=== PATIENT | female | born 1960 | race Caucasian/White ===

== ENCOUNTER → 2020-01-27 10:02 | Outpatient (CLI) | payer BC, SELFPAY ==
--- NOTE | ~2020-01-27 | MM_ITS ---
EXAMINATION: MM screening [facility] BI w [facility]mila HISTORY: Screening TECHNIQUE: Craniocaudal and mediolateral oblique 3-D tomosynthesis images were obtained and synthetic 2-D images were generated. CAD analysis was submitted and interpreted. COMPARISON: Comparison to multiple prior studies sequentially, with oldest reviewed study dated 05/09. BREAST PARENCHYMAL COMPOSITION: There are scattered areas of fibroglandular density. FINDINGS: There is no evidence of suspicious mass, calcification, or architectural distortion to sugg est malignancy in either breast. There has been no suspicious interval change. IMPRESSION: 1. No mammographic evidence of malignancy. 2. Recommend routine screening mammography in one year. BI-RADS Category 1: Negative Reviewed, dictated and finalized at location A.
== END ==
PROVIDERS: PCP Family Medicine Sports Medicine; Visit Provider Nurse Practitioner
DX: Z12.31 Encounter for screening mammogram for malignant neoplasm of breast (principal)
CPT/HCPCS: 77063; 77067

== ENCOUNTER → 2021-02-02 10:41 | Outpatient (CLI) | payer OTHER, SELFPAY ==
--- NOTE | ~2021-02-02 | MM_ITS ---
EXAMINATION: MM screening [facility] BI w urmila HISTORY: Screening mammogram TECHNIQUE: Craniocaudal and mediolateral oblique 3-D tomosynthesis images were obtained and synthetic 2-D images were generated. CAD analysis was submitted and interpreted. COMPARISON: 01/27/2020, 01/22/2019, 01/16/2018 bilateral digital screening mammogram examinations BREAST PARENCHYMAL COMPOSITION: The breasts are heterogeneously dense, which may obscure small masses . FINDINGS: There is no evidence of suspicious mass, calcification, or architectural distortion to sugg est malignancy in either breast. There has been no suspicious interval change. IMPRESSION: 1. No mammographic evidence of malignancy. 2. Recommend routine screening mammography in one year. BI-RADS Category 1: Negative Reviewed, dictated and finalized at location A.
== END ==
PROVIDERS: Visit Provider Nurse Practitioner
DX: Z12.31 Encounter for screening mammogram for malignant neoplasm of breast (principal)
CPT/HCPCS: 77063; 77067

== ENCOUNTER → 2022-02-08 09:54 | Outpatient (CLI) | payer OTHER, SELFPAY ==
--- NOTE | ~2022-02-08 | MM_ITS ---
EXAMINATION: MM screening [facility] BI w urmila HISTORY: Screening mammogram TECHNIQUE: Craniocaudal and mediolateral oblique 3-D tomosynthesis images were obtained and synthetic 2-D images were generated. CAD analysis was submitted and interpreted. COMPARISON: 02/02/2021, 01/27/2020, 02/03/2019, 01/16/2018 BREAST PARENCHYMAL COMPOSITION: The breasts are heterogeneously dense, which may obscure small masses . FINDINGS: No suspicious mass, calcification, or architectural distortion are identified in either sandrine ast to suggest malignancy. There has been no suspicious interval change. IMPRESSION: 1. No mammographic evidence of malignancy. 2. Recommend routine screening mammography in one year. BI-RADS Category 1: Negative Reviewed, dictated and finalized at location A.
== END ==
PROVIDERS: PCP Family Medicine Sports Medicine; Visit Provider Nurse Practitioner
DX: Z12.31 Encounter for screening mammogram for malignant neoplasm of breast (principal)
CPT/HCPCS: 77063; 77067

== ENCOUNTER → 2023-02-14 10:15 | Outpatient (CLI) | payer OTHER, SELFPAY ==
--- NOTE | ~2023-02-14 | MM_ITS ---
EXAMINATION: MM screening [facility] BI w urmila HISTORY: Screening mammogram TECHNIQUE: Craniocaudal and mediolateral oblique 3-D tomosynthesis images were obtained and synthetic 2-D images were generated. CAD analysis was submitted and interpreted. COMPARISON: 02/08/2022, 02/02/2021, 01/27/2020 BREAST PARENCHYMAL COMPOSITION: The breasts are heterogeneously dense, which may obscure small masses . FINDINGS: No suspicious mass, calcification, or architectural distortion are identified in either sandrine ast to suggest malignancy. There has been no suspicious interval change. IMPRESSION: 1. No mammographic evidence of malignancy. 2. Recommend routine screening mammography in one year. BI-RADS Category 1: Negative Reviewed, dictated and finalized at location A.
--- NOTE | ~2023-02-14 | DEXA_ITS ---
Bone Density Report Name: CRICKET HART Age: 62 Sex: Female Ethnicity: White Date of : 1960 Indication: postmenopausal; screening for osteoporosis; prior fracture; rheumatoid arthritis; Referring Provider: GEORGES, SANTA Study: Bone densitometry was performed. Exam Date: February 14, 2023 Accession number: [id number] Bone Density: Region BMD T-score Z-score Classification AP Spine (L1-L4) 0.813 -2.1 -0.7 Osteopenia Femoral Neck (Left) 0.719 -1.2 0.1 Osteopenia Total Hip (Left) 0.845 -0.8 0.2 Normal Femoral Neck (Right) 0.686 -1.5 -0.2 Osteopenia Total Hip (Right) 0.745 -1.6 -0.7 Osteopenia Total Hip Mean 0.795 -1.2 -0.3 Osteopenia World Health Organization criteria for BMD impression classify patients as: Normal (T-score at or above -1.0), Osteopenia (T-score between -1.0 and -2.5), or Osteoporosis (T-score at or below -2.5). 10-year Fracture Risk(1): Major Osteoporotic Fracture 16% Hip Fracture 1.4% Reported Risk Factors: [place] (), Neck BMD=0.686, BMI=36.3, previous fracture, rheumatoid arthritis (1) FRAX(R) Version 3.08. Fracture probability calculated for an untreated patient. Fracture probability may be lower if the patient has received treatment. Clinical Information Provided by Patient: Has had a low trauma fracture Has rheumatoid arthritis Has used the following medications: Vitamin D, Calcium, MTV Patient maximum height was 64.5 Menopause Age: 52 No regular weight bearing exercise Does not regularly consume dairy products Drinks caffeinated beverages Onset of menses at age 14 Number of children 0 Impression: The patient has low bone mass, based on the Total Spine T-score. The patient has an estimated ten-year risk of hip fracture of 1.4% and an estimated ten-year risk of major fracture of 16%, based on the WHO FRAX algorithm. The patient has risk factors, including: previous fracture. Discussion: BONE DENSITY IS LOW AT ONE OR MORE SKELETAL SITES. This patient's lowest T-score is low at one or more skeletal sites. It meets the World Health Organization's (WHO) criteria for ?low bone mass? (T-score between -1.0 and -2.5). The patient's 10-year risk of fracture as calculated by FRAX is less than the threshold where pharmacological therapy is recommended by the National Osteoporosis Foundation (NOF). However, all treatment decisions require clinical judgment and consideration of individual patient factors, including patient preferences, comorbidities, previous drug use, risk factors not captured in the FRAX model (e.g., frailty, falls, vitamin D deficiency, increased bone turnover, interval significant decline in bone density) and possible under or overestimation of fracture risk by FRAX. The patient should follow a healthful lifestyle (good nutrition with adeq
== END ==
PROVIDERS: Visit Provider Nurse Practitioner
DX: Z12.31 Encounter for screening mammogram for malignant neoplasm of breast (principal); Z78.0 Asymptomatic menopausal state; M85.89 Other specified disorders of bone density and structure, multiple sites
CPT/HCPCS: 77063; 77067; 77080

== ENCOUNTER 2024-02-27 10:03 | Outpatient (CLI) | payer BC, SELFPAY ==
--- NOTE | ~2024-02-27 | MM_ITS ---
EXAMINATION: MM screening [facility] BI w urmila HISTORY: Screening mammogram TECHNIQUE: Craniocaudal and mediolateral oblique 3-D tomosynthesis images were obtained and synthetic 2-D images were generated. CAD analysis was submitted and interpreted. COMPARISON: 02/14/2023, 02/08/2022, 02/02/2021, 01/27/2020 BREAST PARENCHYMAL COMPOSITION:Not Dense. There are scattered areas of fibroglandular density. FINDINGS: No suspicious mass, calcification, or architectural distortion are identified in either sandrine ast to suggest malignancy. There has been no suspicious interval change. IMPRESSION: No mammographic evidence of malignancy. Recommend routine screening mammography in one year. BI-RADS Category 1: Negative Reviewed, dictated and finalized at location . S RESEARCH ANALYST
== END 2024-02-27 10:04 | disposition home or self-care (01) ==
LOC: MICIMG 10:04
PROVIDERS: PCP Family Medicine Sports Medicine; Visit Provider Nurse Practitioner
DX: Z12.31 Encounter for screening mammogram for malignant neoplasm of breast (principal)
CPT/HCPCS: 77063; 77067

== ENCOUNTER 2024-09-19 11:19 | Outpatient (CLI) | payer BC, SELFPAY ==
--- NOTE | ~2024-09-19 | US_ITS ---
Pelvic ultrasound. Clinical History: Postmenopausal bleeding Technique: Realtime transabdominal and transvaginal scanning of the pelvis was performed. Color flow Doppler and Doppler spectral analysis were performed. Findings: The uterus is anteverted. The endometrial stripe has a thickness of approximately 3 mm. Po ssible posterior wall fibroid measuring 1.8 cm in diameter . Neither ovary seen. No other adnexal mass seen. There is no evidence of free fluid in the cul de sac. Impression: No definite abnormal endometrial thickening. Possible small uterine fibroid, as above. Reviewed, dictated and finalized at location . Impression: No definite abnormal endometrial thickening. Possible small uterine fibroid, as above.
== END 2024-09-19 11:20 | disposition home or self-care (01) ==
LOC: MICIMG 11:20
PROVIDERS: PCP Family Medicine Sports Medicine; Visit Provider Nurse Practitioner
DX: R93.89 Abnormal findings on diagnostic imaging of other specified body structures (principal)
CPT/HCPCS: 76830; 76856

== ENCOUNTER 2025-02-18 01:09 | Day surgery (SDC) | payer BC, SELFPAY ==
[2025-02-11 12:57] VITALS: BMI 33.0
--- OUTSIDE RECORDS SUMMARY | 2025-02-18 01:12 | XMS_ITS | Encounter Summary ---
Author Organization [facility] Address [address] [place] [id number] Care Team Providers Care Sewing Pattern Layout Technician Name Role Phone Shanae Echols DO Primary Care Provider [phone] Encounter Details Date Type Department Care Team (Late st Contact Info) Description 06/13/2013 Abstract [facility] Conversion Md, Generic Conversion, Social History Tobacco Use Types Packs/Day Years Used Date Smoking Tobacco: Never Assessed Comments Unknown Sex and Gender Information Value Date Recorded Sex Assigned at Female 07/30/2024 4:42 PM CDT Legal Sex Female 5:11 PM CDT Gender Identity Female 07/30/2024 4:42 PM CDT Sexual Orientation Not on file documented as of this encounter Plan of Treatment Not on file documented as of this encounter Visit Diagnoses Not on filedocumented in this encounter Additional Health Concerns Infection Onset Date Last Indicated Resolved Time COVID-19 Rule Out 09/06/2021 09/06/2021 09/06/2021 11:30 AM CDT COVID-19 Rule Out 09/07/2021 09/07/2021 09/07/2021 1:47 PM CDT documented as of this encounter Care Teams Sewing Pattern Layout Technician Relationship Specialty Start Date End Date Shanae Echols DO PCP - General FAMILY PRACTICE 10/12/15 documented as of this encounter
--- OUTSIDE RECORDS SUMMARY | 2025-02-18 01:12 | XMS_ITS | Clinical Summary ---
Author Organization [facility] Address [address] [place] [address] Care Team Providers Care Insole Rounder Name Role Phone Shanae Echols DO Primary Care Provider [phone] Allergies Active Allergy Reactions Criticality Noted Date Comments Cefuroxime Hives,Rash High Reaction: Rash, Hives, Cephalosporins Hives,Unknown,Rash High 06/06/2011 Reaction: Rash, Hives, Cortisone Other (see comment) Reaction: Other, Piroxicam Other (see comment) 03/15/2013 Prednisone Other (see comment) Reaction: Other, Medications multivitamin tablet Take 1 tablet by mouth daily. Active Evening Reseda Oil 1000 MG Cap Take 2,000 mg by mouth daily. Active cetirizine 10 MG chewable tablet Chew 10 mg by mouth daily as needed for Allergies. Active sulfaSALAzine 500 MG tabletIndications :SPECIALIST PRESCRIBES Take 1,000 mg by mouth 2 (two) times daily. Active Cholecalciferol (VITAMIN D3) 50 MCG (1999 UT) Cap Take 2 capsules by mouth 2 (two) times daily. Active alendronate (FOSAMAX) 70 MG tabletIndications :Age-related osteoporosis without current pathological fracture Take 1 tablet (70 mg total) by mouth once a week. Active Active Problems Problem Noted Date Diagnosed Date Rheumatoid arthritis involvi ng multiple sites with positive rheumatoid factor 07/30/2024 Age-related osteoporosis wit hout current pathological fracture 07/30/2024 Subclinical hypothyroidism 09/04/2018 Overview (09/06/2021): Last Assessment & Plan: Reviewed recent thyroid labs Recheck labs today and further plans based on the repeat lab results Undifferentiated spondyloarthropathy 07/25/2018 Overview (09/06/2021): Last Assessment & Plan: Clinically she is stable on current regimen on increased SSZ but recent mild elevation in LFT's. Unclear if weight gain exacerbbating fatty liver or drug induced so will recheck. If stable, continue current regimen. High risk medication use 07/25/2018 Arthralgia of both ankles 07/24/2018 Positive MARY (antinuclear antibody) 07/24/2018 Multinodular goiter 08/15/2017 Overview (07/05/2018): Last Assessment & Plan: Impression - repeat Thyroid Ultrasound in office today - stable Right lobe hypoechoic , solid/cystic nodule 0.8 cm - recheck thyroid u/S in one year - repeat TSH today Plan: Return in one year for thyroid U/s Annual TSH determination Check TSH before next visit If TSH greater than 5 will get free T4 If TSH less than 0.1 will get free T4 and freeT3 If goiter enlarges then will go thyroid ultrasound If ultrasound abnormal, then will need FNA biopsy Osteopenia 06/27/2016 Vitamin D deficiency disease 03/02/2016 Family history of cardiomyopathy 10/12/2015 Family history of sudden cardiac 6 Abnormal blood chemistry level 07/04/2013 Overview (07/05/2018): Date Onset: 07/04/2013 Overweight 07/04/2013 Overview (09/06/2021): Date Onset: 07/04/2013 Allergic rhinitis 06/06/2011 Sinusitis, chronic 06/06/2011 Obesity 03/23/2010 Resolved Problems Problem Noted Date Diagnosed Date Resolved Date Colon cancer screening 07/30/202408/05 Encounters Date Type Department Care Team Description 01/02/2025 9:40 AM CDT Office Visit [address] [place] [address] Carol Shelley APRN Insect Bite (Patient was stung/bit by a wasp on Monday,/First 24 hours no symptoms but now its starting to travel in redness./Spot it located right side lower leg./) 01/02/2025 Travel from Last 3 Months Immunizations Immunization Administration Dates Next Due Dtap (Generic) 10/28/2018 Influenza (Generic) 02/17/2024, 7,02/03/2016,2014,02/11/2014,02/05/2013,01/19/2012,1 Influenza Adult (Generic) 02/03/2023,09/2021,01/25/2021,2019,01/30/2019,01/17/2017,02/02/2016 MODERNA COVID-19 (12+) MRNA, LNP-S, PF, 100 MCG/ 0.5 ML DOSE 12/03/2020 Shingrix 12/02/2021,06/04/2021 Tdap (Generic) 10/28/2018 Family History Medical History Relation Comments Arthritis Mother RA, osteoarthrit is Asthma Mother Mikd Hypertension Mother Relation Status Comments Father (Age 60) Pulmonary embo lism Mother Alive Other (Age 39 and 57) Hypertr ophic and Dilated Cardiomyopathy Sister Alive mild MVP Social History Tobacco Use Types Packs/Day Years Used Date Smoking Tobacco: Never Smokeless Tobacco: Never Tobacco Cessation:Counseling Given: Not Answered Alcohol Use Standard Drinks/Week Comments No 0 (1 standard drink = 0.6 oz pur e alcohol) PHQ-2 Answer Date Recorded Patient Health Questionnaire-2 Score 0 07/30/2024 Comments No Sex and Gender Information Value Date Recorded Sex Assigned at Female 07/30/2024 4:42 PM CDT Legal Sex Female 5:11 PM CDT Gender Identity Female 07/30/2024 4:42 PM CDT Sexual Orientation Not on file Occupation Industry Job Start Date Job End Date Professor Not on file Not on file Not on file Last Filed Vital Signs Vital Sign Reading Time Taken Comments Blood Pressure 110/68 01/02/2025 9:57 AM CDT Pulse 63 01/02/2025 9:57 AM CDT Temperature 36.4 C (97.6 F) 01/02/2025 9:57 AM CDT Respiratory Rate 18 01/02/2025 9:57 AM CDT Oxygen Saturation 97% 01/02/2025 9:57 AM CDT Inhaled Oxygen Concentration - - Weight 102.1 kg (225 lb) 01/02/2025 9:57 AM CDT Height 167.6 cm (5' 6) 01/02/2025 9:57 AM CDT Body Mass Index 36.32 01/02/2025 9:57 AM CDT Plan of Treatment Health Maintenance Due Date Last Done Comments Cervical Cancer Screening Pap Smear (Age 30 to 64) Every 3 Years 1960 Annual Physical 1965 Hepatitis C 1980 Cervical Cancer Screening Pap with HPV Testing (Age 30 to 64) Every 5 Years 1992 Pneumococcal Vaccine: 50+ Years (1 of 1 - PCV) 2012 COVID-19 Vaccine ( season) 2024 10/28/2024, 02/17/2024, 09/14/2023, Additional history exists Influenza Adult (#1) 2025 02/17/2024, 02/03/2023, 01/20/2022, Additional history exists Colorectal Cancer Screening Colonoscopy (10 Years) 03/17/2025 03/17/2015 Cervical Cancer Screening with HPV 07/30/2025 Postponed from 1992 (Going to Outside Clinic) Mammogram Screening 02/26/2026 02/27/2024 DTaP, Tdap and Td Vaccines (3 - Td or Tdap) 10/28/2028 10/28/2018, 10/28/2018 RSV Immunization or 60+ Years (1 - 1-dose 75+ series) 2037 Zoster Vaccines Completed 12/02/2021, 06/04/2021 PHQ-2 (Physician [place]) Completed 07/30/2024 Hepatitis A Vaccines Aged Out No long er eligible based on patient's age to complete this topic Meningococcal B Vaccine Aged Out No l onger eligible based on patient's age to complete this topic Meningococcal Vaccine Aged Out No candi shu eligible based on patient's age to complete this topic RSV Immunizations Under 20 Months Aged Out No longer eligible based on patient's age to complete this topic Procedures Procedure Name Priority Date/Time Associated Diagnosis Comments MAMMOGRAM GENERIC (SCAN ORDER) 02/27/2024 COLONOSCOPY GENERIC (SCAN ORDER) Routine 03/17/2015 12:00 AM FRAMING MILL SUPERVISOR from Last 3 Months or Most Recently Relevant to Health Maintenance Results * MAMMOGRAM GENERIC (SCAN ORDER) (02/27/2024) Anatomical Region Laterality Modality Other 02/27/2024 [facility] Scanned SCANNING Final Resu lt * COLONOSCOPY (03/17/2015 12:00 AM FRAMING MILL SUPERVISOR) 03/17/2015 us Documents Scanned SCANNING Final Result [facility] from Last 3 Months or Most Recently Relevant to Health Maintenance [place] [address] [address] Care Teams Insole Rounder Relationship Specialty Start Date End Date Shanae Echols DO PCP - General FAMILY PRACTICE 10/12/15
--- OUTSIDE RECORDS SUMMARY | 2025-02-18 01:12 | XMS_ITS | Clinical Summary ---
Author Organization [facility] Physician Office Building [address] [place] [id number] Care Team Providers Care Senior Military Analyst Name Role Phone Shanae Echols DO Primary Care Provider [phone] Allergies Active Allergy Reactions Criticality Noted Date Comments Cefuroxime Rash,Hives High Reaction: Rash, Hives, Cephalosporins Rash,Hives,Unknown High 06/06/2011 Reaction: Rash, Hives, Reaction: Rash, Hives, Cortisone Other (See comments) Reaction: Other, Piroxicam Prednisone Other (See comments) Reaction: Other, Medications cholecalciferol (VITAMIN D3) 2,000 unit tablet take one by one oral route one time every day 0 0 6 Active multivitamin (DAILY VITAMIN) tablet tablet take 1 tablet by oral route every day with food 0 0 6 Active cetirizine (ZyrTEC) 10 mg tablet take 1 tablet by oral route every day 0 0 6 Active Additional Information Patient taking differently:10 mgAs needed, Reported on 09/18/2024 evening primrose oil 500 mg capsule take 2 by oral route two times every day 0 0 6 Active calcium-vitamin D3-vitamin K (VIACTIV) 500-500-40 mg-unit-mcg tablet,chewable take one by oral route twpo times every day 0 0 6 Active magnesium oxide (MAG-OX) 415 mg (250 mg elemental) tablet Take 250 mg by mouth 2 (two) times a day. 6 Active alendronate (FOSAMAX) 70 mg tablet every 7 days 4 Active sulfaSALAzine (AZULFIDINE) 500 mg tablet Take 2 tablets (1,000 mg total) by mouth 2 (two) times a day 360 tablet 3 5 Active Active Problems Problem Noted Date Diagnosed Date Undifferentiated spondyloarthropathy 07/25/2018 Assessment & Plan (09/05/2022 11:02 AM CDT): Today she presents with only chronic tenosynovitis of the posterior tibialis tendon as well as the knot of Norm. She does have 1+ soft tissue swelling over the left wrist where she is an old fracture but this is over the common extensor. Would like to review updated radiographs of this to be sure she is not developing superimposed inflammatory changes but this may simply be an overuse syndrome at the wrist. I have reviewed her monitoring laboratories on sulfasalazine and these are entirely stable. 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 Unclear if weight gain exacerbbating fatty liver or drug induced so will recheck. If stable, continue current regimen. Assessment & Plan (01/28/2019 8:29 AM CDT): I am recommending monitoring laboratories. She has no interval problems and she may take her sulfasalazine at 500 mg b.i.d. And escalated to 1 g b.i.d.. I counseled her extensively about cross training as opposed to walking on a regular basis. She had been trying to b uild up her plantar fascia and I do not feel this is the best way for her to approach her issues. We discussed trying to perform some strength training and using an elliptical, stationary bike to decrease impact loading across her feet. Assessment & Plan (07/25/2018 8:14 AM CDT): Clinically she continues to appear predominantly like a undifferentiated spondyloarthropathy with enthesopathy, positive family history of inflammatory bowel disease. At this time I recommend she continue sulfasalazine and we will monitor her liver function tests today. She has had multiple CBCs that were normal but her local laboratory left these off. We reviewed her SI joint films that were performed in March which were negative and if she has escalating back pain, I will repeat these with an MRI. 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 and new onset plantar fascial pain in the opposite foot High risk medication use 07/25/2018 Positive MARY (antinuclear antibody) 07/24/2018 Arthralgia of both ankles 07/24/2018 Transaminitis 01/12/2018 Multinodular goiter 08/15/2017 Overview (09/07/2021): Last Assessment & Plan: Impression - repeat [...] ultrasound abnormal, then will need FNA biopsy Assessment & Plan (09/26/2022 9:29 AM CDT): performed a follow up thyroid ultrasound in office today Overall stable MNG since 2017 No compressive symptoms Recent TSH 07/2022 WNL Follow up in 2-3 yrs Assessment & Plan (09/14/2020 6:25 PM CDT): performed a follow up thyroid ultrasound in office today Overall stable MNG No compressive symptoms Check TSH Follow up in one year Assessment & Plan (09/04/2018 10:49 AM CDT): Impression - repeat Thyroid Ultrasound in office today - stable Right lobe hypoechoic , solid nodule 0.85 cm - recheck thyroid u/S in one [...] ultrasound abnormal, then will need FNA biopsy Assessment & Plan (08/15/2017 11:48 AM CDT): Impression - repeat Thyroid Ultrasound in office [...] Osteopenia 06/27/2016 Vitamin D deficiency disease 03/02/2016 Menopausal symptom 03/02/2016 Overweight 07/04/2013 Overview (10/05/2021): Date Onset: 07/04/2013 Abnormal blood chemistry level 07/04/2013 Overview (10/05/2021): Date Onset: 07/04/2013 Class 2 obesity due to exces s calories without serious comorbidity with body mass index (BMI) of 35.0 to 35.9 in adult 03/23/2010 Resolved Problems Problem Noted Date Diagnosed Date Resolved Date Subclinical hypothyroidism 09/04/2018 0 09/26/2022 Assessment & Plan (09/04/2018 10:49 AM CDT): Reviewed recent thyroid labs Recheck labs today and further plans based on the repeat lab results Pain in shoulder 12/27/2016 03/27/2018 Lateral epicondylitis 06/27/20162017 Muscle pain 03/02/2016 03/27/2018 Arthralgia of multiple joints 03/02/2016 03/27/2018 Knee pain 03/23/2010 03/27/2018 Immunizations Immunization Administration Dates Next Due DTaP, Unspecified 10/28/2018 Influenza, Quadrivalent, Spl it, Preservative Free, Intramuscular 01/17/2017,02/02/2016 Influenza, Unspecified 01/18/2017,2015,01/22/2015,02/11,02/05/2013,01/19/2012,01/27/2011 Moderna SARS-CoV-2 Monovalen t Vaccination (12+ YRS) 12/03/2020 Tdap 10/28/2018 Surgical History Surgery Date Site/Laterality Comments OTHER SURGICAL HISTORY D&C FOOT SURGERY Foot surgery NASAL SEPTUM SURGERY septoplasty WRIST FRACTURE SURGERY Left CLOSED FRACTURE Medical History Medical History Date Comments Hx Other Medical allergic rhinit is; Comments: [facility] 01/28/2016 - Hx Other Medical elevated ldh; C omments: [facility] 01/28/2016 - Hx Other Medical tenosynovitis o f lateral peroneal; Comments: 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 01/28/2016 - Hx Other Medical osteopenia; Com ments: [facility] 07/26/2016 - Osteoarthritis Family History Medical History Relation Name Comments Migraines Father Migraines; Other Father Polymyalgia rhe umatica; /peripheral neuropathy; Diabetes Mother Diabetes mellit us; Hypertension Mother Hypertension; Rheum arthritis Mother Rheumatoid a rthritis; /Rheumatoid Arthritis - (Added by TW Conv) Relation Name Status Comments Father Mother Social History Tobacco Use Types Packs/Day Years Used Date Smoking Tobacco: Never Smokeless Tobacco: Never Alcohol Use Standard Drinks/Week Comments No 0 (1 standard drink = 0.6 oz pur e alcohol) AUDIT-C Answer Date Recorded Frequency of Alcohol Consumption Not on file 09/18/2024 Q2: How many drinks containi ng alcohol do you have on a typical day when you are drinking? 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 Gender Identity Not on file Sexual Orientation Not on file Last Filed Vital Signs Vital Sign Reading Time Taken Comments Blood Pressure 113/80 09/18/2024 10:13 AM CDT Pulse 75 09/18/2024 10:13 AM CDT Temperature 36.8 C (98.2 F) 09/18/2024 10:13 AM CDT Respiratory Rate 12 09/26/2022 9:05 AM CDT Oxygen Saturation 97% 09/18/2024 10: 13 AM CDT Inhaled Oxygen Concentration - - Weight 100.6 kg (221 lb 11.2 oz) 2024 10:13 AM CDT Height 167.6 cm (5' 6) 09/18/2024 10:1 3 AM CDT Body Mass Index 35.78 09/18/2024 10:13 AM CDT Plan of Treatment Health Maintenance Due Date Last Done Comments Breast Cancer Screening-Mammogram 1960 Cervical Cancer Screening 1960 Colon Cancer Screening-Colonoscopy 1960 Hepatitis C Screening 1960 Hepatitis B Screening 1980 Regular Well Visit/Exam 18-64 1980 Depression Screening 09/04/2021 09/04/2020, 08/16/19 18 Covid-19 Vaccine ( season) 2024 12/03/2020 Influenza Vaccine (#1) 2024 , 02/03/2023, 01/20/2022, Additional history exists DTaP/Tdap/Td Vaccine (3 - Td or Tdap) 10/28/2028 10/28/2018, 10/28/2018 Zoster Vaccine Completed 12/02/2021, 06/04/2021 Pneumococcal vaccine <65 Aged Out No longer eligible based on patient's age to complete this topic Insurance [employer] OPEN ACCESS CHOICE PRF PPO [place] [facility] [place] ACCESS CHOICE [place]PO [place] Care Teams Senior Military Analyst Relationship Specialty Start Date End Date Shanae Echosl DO [address] [place] [address] [place] [address] PCP - General 12/27/16
--- OUTSIDE RECORDS SUMMARY | 2025-02-18 01:12 | XMS_ITS | Encounter Summary ---
Author Organization [facility] Address [address] [place] [address] Care Team Providers Care Medical Insurance Verifier Name Role Phone Shanae Echols DO Primary Care Provider [phone] Encounter Details Date Type Department Care Team (Late st Contact Info) Description 09/14/2018 Abstract [facility] [address] [place] [address] Shanae Echols DO [address] [place] [address] Social History Tobacco Use Types Packs/Day Years Used Date Smoking Tobacco: Never Smokeless Tobacco: Never Alcohol Use Standard Drinks/Week Comments No 0 (1 standard drink = 0.6 oz pur e alcohol) Comments Unknown Sex and Gender Information Value Date Recorded Sex Assigned at Female 07/30/2024 4:42 PM CDT Legal Sex Female 5:11 PM CDT Gender Identity Female 07/30/2024 4:42 PM CDT Sexual Orientation Not on file Occupation Industry Job Start Date Job End Date Professor Not on file Not on file Not on file documented as of this encounter Plan of Treatment Not on file documented as of this encounter Procedures Procedure Name Priority Date/Time Associated Diagnosis Comments HEALTH FAIR WITH LIPID Routine 09/13/2018 documented in this encounter Results * HEALTH FAIR WITH LIPID (09/13/2018) WBC 6.6 Comment:ALREADY SEEN RBC 4.5 HGB 13.3 HCT 41.9 MCV 92.3 MCH 29.3 MCHC 31.7 RDW 14.1 PLT 301 ABS. NEUTROPHILS 4.05 ABS. LYMPHOCYTES 1.94 ABS. MONOCYTES 0.52 ABS. EOSINOPHILS 0.03 ABS. BASOPHILS 0.03 ABS. IMMATURE CELLS 0.01 NEUTROPHILS % 61.4 LYMPHOCYTES % 29.5 MONOCYTES % 7.9 EOSINOPHILS % 0.5 BASOPHILS % 0.5 IMMATURE GRANS % 0.20 GLUCOSE 79 mg/dL SODIUM S/P/B 140 POTASSIUM S/P/B 3.4 CHLORIDE S/P/B 102 CO2 28 BUN 14 CREATININE S/P/B 0.6 0.5 - 1.0 TOTAL PROTEIN S/P/B 7.4 CALCIUM S/P/B 9.4 ALBUMIN S/P/B 3.8 3.5 - 5.0 ALKALINE PHOSPHATASE S/P/B 91 AST 25 ALT 35 09/13/2018 us Doc [facility] Abstract LABORATORY Edited Resul t - Final documented in this encounter Visit Diagnoses Not on filedocumented in this encounter Additional Health Concerns Infection Onset Date Last Indicated Resolved Time COVID-19 Rule Out 09/06/2021 09/06/2021 09/06/2021 11:30 AM CDT COVID-19 Rule Out 09/07/2021 09/07/2021 09/07/2021 1:47 PM CDT documented as of this encounter Care Teams Medical Insurance Verifier Relationship Specialty Start Date End Date Shanae Echols DO PCP - General FAMILY PRACTICE 10/12/15 documented as of this encounter
--- OUTSIDE RECORDS SUMMARY | 2025-02-18 01:12 | XMS_ITS | Encounter Summary ---
Author Organization [facility] Address [address] [place] [address] Care Team Providers Care Intern Brand Name Role Phone Shanae Echols DO Primary Care Provider [phone] Encounter Details Date Type Department Care Team (Late st Contact Info) Description 10/09/2018 Abstract [facility] [address] [place] [address] Shanae Echols DO [address] [place] [address] Social History Tobacco Use Types Packs/Day Years [...] on file documented as of this encounter Progress Notes * Shanae Echols DO - 10/09/2018 9:35 AM CDT This is fine documented in this encounter Plan of Treatment Not on file documented as of this encounter Procedures Procedure Name Priority Date/Time Associated Diagnosis Comments T3 FREE (ABSTRACTED) Routine 09/13/2018 THYROXINE, TOTAL Routine 09/13/2018 THYROID STIM HORMONE TSH Routine 09/13/2018 documented in this encounter Results * T3 FREE (ABSTRACTED) (09/13/2018) FREE T3 2.9 Comment:already reviewed juan s 09/13/2018 us Doc [facility] Abstract LAB-OUTSIDE/ABSTRACTED Final Result * THYROXINE, TOTAL (09/13/2018) TOTAL T4 1.03 Comment:already reviewed thi s 09/13/2018 us Doc [facility] Abstract LABORATORY Final Result * THYROID STIM HORMONE, TSH (09/13/2018) TSH 2.612 Comment:already reviewed juan s 09/13/2018 us Doc [facility] Abstract LABORATORY Edited Resul t - Final documented in this encounter Visit Diagnoses Not on filedocumented in this encounter Additional Health Concerns Infection Onset Date Last Indicated Resolved Time COVID-19 Rule Out 09/06/2021 09/06/2021 09/06/2021 11:30 AM CDT COVID-19 Rule Out 09/07/2021 09/07/2021 09/07/2021 1:47 PM CDT documented as of this encounter Care Teams Intern Brand Relationship Specialty Start Date End Date Shanae Echols DO PCP - General FAMILY PRACTICE 10/12/15 documented as of this encounter
[2025-02-18 07:26] VITALS: BP 127/73; PULSE 88; RESP 16; TEMP 36.6; O2SAT 100
[2025-02-18] MEDS: LACTATED RINGERS 1,000 ML 150 ML IV CONT (07:36)
--- NOTE | 2025-02-18 08:06 | WPDANESEPPF ---
Anes - Initial Pre Proc Eval Procedure: Operation Date: 02/18/25 08:30 Proposed Procedures p Screening Colonoscopy - Sadiq Garcia MD Date/Time: 02/18/25 08:06 Surgeon: Sadiq Garcia MD Pre Op Diagnosis: Screening Patient Data Age: 64 Gender: F Height: 1.68 m Weight: 93.8 kg Last Vital Signs Temp 36.6 C 02/18/25 07:26 Pulse 88 02/18/25 07:26 Resp 16 02/18/25 07:26 BP 127/73 02/18/25 07:26 Pulse Ox 100 02/18/25 07:26 O2 Del Method Room Air 02/18/25 07:26 Allergies Allergy/AdvReac Type Severity Reaction Status Date / Time Cephalosporins Allergy Severe HIVES Verified 02/18/25 07:24 Corticosteroids AdvReac Swelling Verified 02/18/25 07:24 (Glucocorticoids) Home Medications ?Medication ?Instructions ?Recorded ?Confirmed ?Type alendronate 70 mg tablet 70 mg PO WEEKLY 02/11/25 02/18/25 History cetirizine 10 mg tablet (24Hour 10 mg PO DAILY PRN allergy symptoms 02/11/25 02/18/25 History Allergy) magnesium 200 mg tablet 200 mg PO DAILY 02/11/25 02/18/25 History multivitamin (Daily Multi-Vitamin 1 tablet PO DAILY 02/11/25 02/18/25 History tablet) omega 3 350 mg-dha 235 mg-epa 90 2 cap PO DAILY 02/11/25 02/18/25 History mg-fish oil 597 mg capsule,delay rel ([place]-3) potassium 75 mg tablet 75 mg PO DAILY 02/11/25 02/11/25 History sulfasalazine 500 mg tablet 500 mg PO BID 02/11/25 02/18/25 History Patient hx anesthesia problems: none Family hx anesthesia problems: none Results Review: All pre-operative results and documents have been reviewed as part of the pre-operative evaluation. [facility] Social History Social History Smoking status: Never smoker Alcohol intake: never Substance use: never Substance use type: does not use Living arrangements: with family Spiritual care concerns: No Anes - Eval Final PreProcedure Day of Procedure 02/18/25 08:06 Patient weight: obese Heart: regular rate and rhythm Lungs: clear to auscultation Airway: Mallampati scale class II Neurological: alert and oriented Last oral intake: >/= 8 hours ASA classification: III Emergent: no Anesthetic plan: proceed Anesthesia type and monitoring: general GIVS and standard monitoring Results Review: All pre-operative results and documents have been reviewed as part of the pre-operative evaluation. Informed Consent: The patient's anesthetic plan and its attendant risks and benefits were discussed with the patient/family/POA. Questions were solicited and answers provided to the satisfaction of the patient/family/POA.
--- NOTE | 2025-02-18 08:19 | PM.HPGS ---
History of Present Illness History of Present Illness Consent: Risks, benefits, and alternatives have been discussed and questions answered. Patient agrees to proceed with procedure. Chief complaint: Screening Narrative: Rosalind Cortez is a 64 year old female here for screening colonoscopy, last one 10 years ago Review of Systems Review of Systems: All systems reviewed & are unremarkable except as noted in HPI and below PMFSH Past Medical History Medical History (Updated 02/18/25 @ 08:19 by Sadiq Garcia MD) Colon cancer screening Social History Social History Smoking status: Never smoker Alcohol intake: never Substance use: never Substance use type: does not use Living arrangements: with family Spiritual care concerns: No Meds Home Medications and Allergies Home Medications ?Medication ?Instructions ?Recorded ?Confirmed ?Type alendronate 70 mg tablet 70 mg PO WEEKLY 02/11/25 02/18/25 History cetirizine 10 mg tablet (24Hour 10 mg PO DAILY PRN allergy symptoms 02/11/25 02/18/25 History Allergy) magnesium 200 mg tablet 200 mg PO DAILY 02/11/25 02/18/25 History multivitamin (Daily Multi-Vitamin 1 tablet PO DAILY 02/11/25 02/18/25 History tablet) omega 3 350 mg-dha 235 mg-epa 90 2 cap PO DAILY 02/11/25 02/18/25 History mg-fish oil 597 mg capsule,delay rel ([place]-3) potassium 75 mg tablet 75 mg PO DAILY 02/11/25 02/11/25 History sulfasalazine 500 mg tablet 500 mg PO BID 02/11/25 02/18/25 History Allergies Allergy/AdvReac Type Severity Reaction Status Date / Time Cephalosporins Allergy Severe HIVES Verified 02/18/25 07:24 Corticosteroids AdvReac Swelling Verified 02/18/25 07:24 (Glucocorticoids) Vital Signs Vital Signs - 24 hr 02/18/25 07:26 Temperature 97.9 F Pulse Rate 88 Respiratory Rate 16 Blood Pressure 127/73 Pulse Oximetry 100 Oxygen Delivery Room Air Exam Const: General: comfortable and no acute distress HENMT: Face/Nose/Sinus: Normal nares present Eyes: General: appearance normal, both eyes and all related structures Resp: Auscultation: clear to auscultation bilaterally Cardio: Rate: regular rate Rhythm: regular rhythm GI: Inspection: non-distended GI Palp: Yes Soft to palpation Skin: General skin exam: normal color Extrem: General: normal to inspection Psych: Mental Status: mental status grossly normal Assessment and Plan Assessment and plan (1) Colon cancer screening: Code(s): Z12.11 - Encounter for screening for malignant neoplasm of colon Status: Acute Assessment and Plan: colonoscopy
[2025-02-18 08:42] VITALS: BP 109/63; PULSE 78; RESP 20; O2SAT 99
--- NOTE | 2025-02-18 08:42 | S_PTH ---
PATIENT: Rosalind Cortez LOC: [facility] Saucedo#:[id number] AGE/SX: 64/F ROOM: RE02/18/[address]: Sadiq Garcia MD : 1960 BED: DIS: 02/18/2025 SPEC #: [id number] RECD: 02/18/25 09:28 STATUS: JOANNA REVera #: [id number] ANDRA: 02/18/25 08:[address]: Sadiq Garcia DEPT: [facility] Surgical RECD BY: Dhaval Parker ENTERED: 02/18/25 09:28 SP TYPE: Surgical OTHR DR: Shanae Echols, DO Tissues: A - Colon Polypectomy B - Colon Polypectomy Procedures: Hematoxylin and Eosin Stain Gross and Microscopic Level 4
[2025-02-18 08:52] VITALS: BP 120/65; PULSE 70; RESP 19; O2SAT 99
[2025-02-18 09:02] VITALS: BP 123/78; PULSE 67; RESP 20; O2SAT 100
== END 2025-02-18 09:12 | disposition home or self-care (01) ==
PROVIDERS: PCP Family Medicine Sports Medicine; Referring Provider Family Medicine Sports Medicine; Visit Provider Internal Medicine Gastroenterology
PROC: 0DJD8ZZ Inspection of Lower Intestinal Tract, Via Natural or Artificial Opening Endoscopic (ICD-10-PCS; CPT 45378; principal; 2025-02-18 08:30)
DX: Z12.11 Encounter for screening for malignant neoplasm of colon (principal); D12.4 Benign neoplasm of descending colon; K63.5 Polyp of colon; K64.8 Other hemorrhoids; E66.9 Obesity, unspecified; Z68.33 Body mass index [BMI] 33.0-33.9, adult; Z79.83 Long term (current) use of bisphosphonates
CPT/HCPCS: 45385; 88305; J2003; J2704; J7120

== ENCOUNTER 2025-03-11 14:05 | Outpatient (CLI) | payer BC, SELFPAY ==
--- NOTE | ~2025-03-11 | MM_ITS ---
EXAMINATION: MM screening jono BI w urmila HISTORY: Screening TECHNIQUE: Craniocaudal and mediolateral oblique 3-D tomosynthesis images were obtained and synthetic 2-D images were generated. CAD analysis was submitted and interpreted. COMPARISON: Comparison to multiple prior studies sequentially, with oldest reviewed study dated 01/22/2019. BREAST PARENCHYMAL COMPOSITION: Dense: The breasts are heterogeneously dense, which may obscure small masses FINDINGS: There is no evidence of suspicious mass, calcification, or architectural distortion to suggest malignancy in either breast. There has been no suspicious interval change. IMPRESSION: 1. No mammographic evidence of malignancy. 2. Recommend routine screening mammography in one year. BI-RADS Category 1: Negative Reviewed, dictated and finalized at location O. ECT MANAGEMENT INTERN
--- NOTE | ~2025-03-11 | DEXA_ITS ---
Bone Density Report Name: CRICKET HART Age: 64 Sex: Female Ethnicity: White Date of : 1960 Indication: osteopenia; monitoring treatment; height loss; rheumatoid arthritis; Referring Provider: GEORGES, SANTA Study: Bone densitometry was performed. Exam Date: March 11, 2025 Accession number: [id number] Bone Density: Region BMD T-score Z-score Classification AP Spine(L1-L4) 0.816 -2.1 -0.5 Osteopenia Femoral Neck (Left) 0.755 -0.8 0.5 Normal Total Hip (Left) 0.832 -0.9 0.2 Normal Femoral Neck (Right) 0.707 -1.3 0.1 Osteopenia Total Hip (Right) 0.775 -1.4 -0.3 Osteopenia Total Hip Mean 0.804 -1.2 -0.1 Osteopenia World Health Organization criteria for BMD impression classify patients as: Normal (T-score at or above -1.0), Osteopenia (T-score between -1.0 and -2.5), or Osteoporosis (T-score at or below -2.5). 10-year Fracture Risk: FRAX not reported because: Treated for osteoporosis Previous Exams: -- Region Exam Age BMD T-score BMD Change BMD Change Date g/cm2 vs Baseline vs Previous -- AP Spine (L1-L4) 03/11/2025 64 0.816 -2.1 0.5% 0.5% 02/14/2023 62 0.813 -2.1 Total Hip(Left) 03/11/2025 64 0.832 -0.9 -1.5%# -1.5%# 02/14/2023 62 0.845 -0.8 Total Hip(Right) 03/11/2025 64 0.775 -1.4 4.0%# 4.0%# 02/14/2023 62 0.745 -1.6 -- *Denotes significance at 95% confidence level, LSC for AP Spine = 0.022 g/cm2, LSC for Total Hip = 0.027 g/cm2 # Denotes dissimilar scan types or analysis methods Clinical Information Provided by Patient: Has rheumatoid arthritis Is being treated for osteoporosis Has used the following medications: Fosamax (i.e. alendronate), Vitamin D, Calcium Patient maximum height was 66 Menopause Age: 52 No regular weight bearing exercise Does not regularly consume dairy products Onset of menses at age 14 Number of children 0 Impression: The patient has low bone mass, based on the Total Spine T-score. Unable to evaluate interval change due to the use of different scan modes. Discussion: PATIENT UNDER TREATMENT WITH NO SIGNIFICANT BMD LOSS SINCE LAST EXAM. In an untreated patient, BMD typically declines with age. A lack of decline or gain is usually a sign that treatment is efficacious and fracture risk is reduced. It is important to ask patients whether they are taking their medications and to encourage continued and appropriate compliance with their osteoporosis therapies to reduce fracture risk. It is also important to review their risk factors and encourage appropriate calcium and vitamin D intakes, exercise, fall prevention and other lifestyle measures. Follow-Up: Consider a repeat BMD and Vertebral Fracture Assessment (VFA) exam in 2 years or sooner if medically necessary, to reassess this patient's status. Reported by: ANCA on 03/11/2025 2:29:00 PM. Reviewed, dictated and finalized at location A.
== END 2025-03-11 14:06 | disposition home or self-care (01) ==
LOC: MICIMG 14:06
PROVIDERS: PCP Nurse Practitioner; Visit Provider Nurse Practitioner
DX: Z12.31 Encounter for screening mammogram for malignant neoplasm of breast (principal); M85.88 Other specified disorders of bone density and structure, other site; Z78.0 Asymptomatic menopausal state
CPT/HCPCS: 77063; 77067; 77080